=== PATIENT | female | born 1995 | race Two or more races ===

== ENCOUNTER 2022-04-29 20:40 | Emergency (ER) | payer OTHER, SELFPAY ==
--- NOTE | ~2022-04-29 | XR_ITS ---
EXAMINATION: XR RIBS, LEFT CLINICAL INFORMATION: Pole pulled into table with rib and abdominal pain COMPARISON: Chest radiograph 02/20/2012 TECHNIQUE: Single view of the chest. 3 views of the left ribs were obtained. FINDINGS: Lungs are clear. No consolidation, pneumothorax, or pleural effusion. The cardiomediastinal silhouette and pulmonary vasculature are normal. Osseous structures are unremarkable. Ribs are intact. No fractures are identified. XR/XR ribs LT min 3V w CXR1V IMPRESSION: Unremarkable examination.
[2022-04-29 20:50] VITALS: BP 142/86; PULSE 99; RESP 17; TEMP 37; O2SAT 97; BMI 32.8
[2022-04-29 21:02] LABS: MANUAL DIFF FLAG NO
[2022-04-29 21:03] LABS: Basophils Absolute Auto 0.1 X10*3/uL (0.0-0.2); Basophils Percent Auto 0.6 % (0-2); Eosinophils Absolute Auto 0.2 X10*3/uL (0.0-0.4); Eosinophils Percent Auto 1.7 % (0-4); Hematocrit 40.4 % (37.0-47.0); Hemoglobin 13.2 g/dl (12.0-16.0); Imm Gran Abs Auto 0.02 X10*3/uL (0.00-0.03); Imm Gran Pct Auto 0.2 % (0.0-0.4); Lymphocytes Percent Auto 33.9 % (20-40); Mean Corpuscular HGB Conc 32.7 g/dl (31.0-35.0); Mean Corpuscular Hemoglobin 28.4 pg (27.0-33.0); Mean Corpuscular Volume 87.1 fL (80.0-98.0); Mean Platelet Volume 9.3 fL (9.4-12.3); Monocytes Absolute Auto 0.7 X10*3/uL (0.1-1.2); Monocytes Percent Auto 7.8 % (2-11); Neutrophils Absolute Auto 4.9 x10*3/uL (2.0-8.3); Neutrophils Percent Auto 55.8 % (45-73); Platelet Count 302 X10*3/uL (160-400); Red Blood Count 4.64 X10*6/uL (4.20-5.50); Red Cell Distribution Width 12.7 % (11.0-16.0); White Blood Count 8.9 X10*3/uL (4.8-10.8)
[2022-04-29 21:24] LABS: Alanine Aminotransferase 21 U/L (0-31); Albumin Level 3.8 g/dL (3.5-5.0); Alkaline Phosphatase 114 U/L (39-117); Anion Gap 12 (12-20); Aspartate Amino Transferase 16 U/L (5-31); Bilirubin Total 0.2 mg/dL (0.0-1.0); Blood Urea Nitrogen 13 mg/dL (9-16); Carbon Dioxide 25 mmol/L (22-29); Chloride 104 mmol/L (96-108); Creatinine Clr Calc Pharmacy 110.2; Estimated Glomerular Filt Rate > 60; Glucose Random 329 mg/dL (60-115); Potassium 3.9 mmol/L (3.3-5.1); Sodium 137 mmol/L (135-145); Total Protein 6.7 g/dL (6.5-8.0)
--- NOTE | 2022-04-29 21:39 | ED_ITS ---
HPI - General Adult General Chief complaint: General Medical Stated complaint: Fall yesterday/Rib pain Source: patient Mode of arrival: ambulatory Limitations: no limitations History of Present Illness HPI narrative: 26-year-old female presents with left-sided rib and abdominal pain. States her dog pulled her over a table, she hit her left rib cage into the table. She stated it was painful last night but the pain is getting worse and radiating into her abdomen. She did note some bruising to the left chest wall. She has pain on inspiration, and pain on movement. States difficult to push to go to the bathroom because of the rib pain. She does not report any prodromal events prior to the injury, denies fevers, chills, cough, shortness breath. Onset (ago): day(s) (1) Location: chest Radiation: abdomen Severity: moderate Severity scale (1-10): 7 Quality: aching and constant Pain Consistency: constant Relieving factors: rest Exacerbating factors: movement Associated symptoms: chest pain Treatments prior to arrival: none Related Data Previous Rx's Medication Instructions Recorded oxycodone 5 mg tablet 5 mg PO Q8H PRN pain 3 days #6 tabs 04/29/22 Allergies Allergy/AdvReac Type Severity Reaction Status Date / Time ibuprofen [From MOTRIN] Allergy Unknown UNKNOWN Unverified 07/13/20 17:20 morphine [MORPHINE] Allergy Unknown REDNESS Unverified 07/13/20 17:20 naproxen [NAPROXEN] Allergy Unknown UNKNOWN Unverified 07/13/20 17:20 Motrin Allergy Unknown Uncoded 04/01/17 00:00 NSAIDS Allergy Unknown Uncoded 04/01/17 00:00 Review of Systems Review of Systems: Constitutional: No Fever, No Chills ENT/Mouth: No Ear Pain, No Hoarseness, No sore throat Eyes: No Eye Pain, No Swelling, No Redness, No Foreign Body Cardiovascular: No Chest Pain, No SOB Respiratory: No Cough, No Dyspnea Gastrointestinal: No Nausea, No Vomiting, No Diarrhea, No abdominal Pain Genitourinary: No Dysuria, No Hematuria Musculoskeletal: positive left rib and abdominal pain, No Myalgias, No Joint Swelling Skin: No Skin lacerations, No rash Neuro: No Weakness, No Numbness, No Paresthesias, No Loss of Consciousness, No Dizziness, No Headache Psych: No Anxiety/Panic, No Depression Heme/Lymph: no easy bruising, no Lymphadenopathy Endocrine: No Polyuria, No Polydipsia Yes all other systems are reviewed and are negative [facility] Past Medical History Attestation statement: The following information was validated with the patient. Source: old records reviewed Social History Social History Advance Directives: No Advance Directives Information Provided: No Physical Exam ED Vital Signs: Vital Signs - 24 hr 04/29/22 20:50 04/29/22 22:01 Temperature 98.6 F 98.6 F Pulse Rate 99 91 Respiratory Rate 17 16 Blood Pressure 142/86 H 136/84 Pulse Oximetry 97 96 Oxygen Delivery Method Room Air Room Air BMI result Body Mass Index 32.8 Appearance: Alert. Oriented X3. No acute distress. Eyes: Pupils equal, round and reactive to light. ENT: Pharynx normal. Neck: Normal inspection. Neck supple. No vertebral tenderness or step-offs. CVS: Normal heart rate and rhythm. Pulses normal. Respiratory: No respiratory distress. Lung sounds clear to auscultation all lo bes. Reproducible Chest wall tenderness to palpation. Abdomen: Soft and nontender. Skin: Bruising noted to the lateral left chest wall, Skin warm and dry. Normal skin color. Normal skin turgor. Extremities: No lower extremity edema. Gait well-balanced will coordinated. Neuro: No motor deficit. No sensory deficit. Cranial nerves 2-12 intact. Course Course Course Narrative: 26-year-old female presents with left rib and abdominal pain after an injury yesterday. Her dog pulled her over a table, she hit the left side of her chest wall on the edge of the table. She is ambulatory, appears nontoxic, speaking in full sentences, and states the pain is worse on movement and palpation. Vital signs are stable and within normal limits. Lab values indicate an elevated blood sugar of 329 however she does take metformin and is not insulin dependent. She has not exhibiting any signs or symptoms of hyperglycemia Chest x-ray is pending. 22:41 chest x-rays negative for acute findings. Patient's presentation with rib contusion. Will prescribe oxycodone and pain management. Patient does understand the risks of this medication. Patient verbalized understanding of and agrees to plan of care discharge home. Verbalized understanding of signs and symptoms indicating need for emergent intervention. Medical Decision Making Differential Diagnosis Differential Diagnosis: Pneumothorax, rib fracture, rib contusion, costochondritis Medical Records Medical records reviewed: Yes I reviewed the patient's medical records. Lab Data Lab results reviewed: Yes I reviewed the patient's lab results. Result diagrams: 04/29/22 20:58 04/29/22 20:58 Labs: Lab Results 04/29/22 04/29/22 Range/Units 20:58 20:58 WBC 8.9 (4.8-10.8) X10*3/uL RBC 4.64 (4.20-5.50) X10*6/uL Hgb 13.2 (12.0-16.0) g/dl Hct 40.4 (37.0-47.0) % MCV 87.1 (80.0-98.0) fL MCH 28.4 (27.0-33.0) pg MCHC 32.7 (31.0-35.0) g/dl RDW 12.7 (11.0-16.0) % Plt Count 302 (160-400) X10*3/uL MPV 9.3 L (9.4-12.3) fL Immature Gran % (Auto) 0.2 (0.0-0.4) % Neut % (Auto) 55.8 (45-73) % Lymph % (Auto) 33.9 (20-40) % Bremer % (Auto) 7.8 (2-11) % Eos % (Auto) 1.7 (0-4) % Baso % (Auto) 0.6 (0-2) % Lymph # (Auto) 3.0 (1.2-4.9) X10*3/uL Bremer # (Auto) 0.7 (0.1-1.2) X10*3/uL Eos # (Auto) 0.2 (0.0-0.4) X10*3/uL Baso # (Auto) 0.1 (0.0-0.2) X10*3/uL Abs Immat Gran (auto) 0.02 (0.00-0.03) X10*3/uL Absolute Neuts (auto) 4.9 (2.0-8.3) x10*3/uL Absolute Nucleated RBC 0.000 (0.0-0.012) X10*3/uL Nucleated RBC % (auto) 0.0 (0.0-0.2) /100WBC Sodium 137 (135-145) mmol/L Potassium 3.9 (3.3-5.1) mmol/L Chloride 104 (96-108) mmol/L Carbon Dioxide 25 (22-29) mmol/L Anion Gap 12 (12-20) BUN 13 (9-16) mg/dL Creatinine 0.90 (0.5-1.4) mg/dL Estim Creat Clear Calc 110.2 Estimated GFR > 60 Random Glucose 329 H (60-115) mg/dL Calcium 9.0 (8.4-10.2) mg/dL Total Bilirubin 0.2 (0.0-1.0) mg/dL AST 16 (5-31) U/L ALT 21 (0-31) U/L Alkaline Phosphatase 114 (39-117) U/L Total Protein 6.7 (6.5-8.0) g/dL Albumin 3.8 (3.5-5.0) g/dL Imaging Data Rib x-ray: Attestation: I personally reviewed and interpreted this imaging study as follows: Radiologist's impression: EXAMINATION: XR RIBS, LEFT CLINICAL INFORMATION: Pole pulled into table with rib and abdominal pain COMPARISON: Chest radiograph 02/20/2012 TECHNIQUE: Single view of the chest. 3 views of the left ribs were obtained. FINDINGS: Lungs are clear. No consolidation, pneumothorax, or pleural effusion. The cardiomediastinal silhouette and pulmonary vasculature are normal. Osseous structures are unremarkable. Ribs are intact. No fractures are identified. XR/XR ribs LT min 3V w CXR1V IMPRESSION: Unremarkable examination. Discharge Plan Discharge Clinical Impression: Contusion of rib Patient Disposition: Home, Self-Care Instructions: Contusion in Adults (ED), Rib Contusion (ED) Additional Instructions: You were evaluated for left rib injury. Negative for fracture. Your symptoms are consistent with rib contusion. Please take Tylenol 650 mg every 6 hours and Motrin 600 mg every 6 hours as needed for pain management. Write down what time he take these medications to prevent accidental overdose. Drink plenty of fluids. I prescribed oxycodone for pain management. This medication is a narcotic and has high risk for addiction and abuse. Do not drive or operate machinery while taking this medication. This medication can delay reaction time, increased risk for falls, cause drowsiness, and constipation. Use MiraLax once or twice daily to help soften stools. Follow-up with primary care physician. Thank you for choosing this emergency department for evaluation. Please follow-up with primary care physician as needed. Return to the emergency department for any new, concerning, or worsening symptoms. Prescriptions: New oxycodone 5 mg tablet 5 mg PO Q8H PRN (Reason: pain) 3 Days Qty: 6 0RF Rx Instructions: Partial Fill upon patient request. Rib contusion
[2022-04-29 22:01] VITALS: BP 136/84; PULSE 91; RESP 16; TEMP 37; O2SAT 96
== END 2022-04-29 23:24 | disposition home or self-care (01) ==
PROVIDERS: Emergency Provider Internal Medicine; PCP Pediatrics
DX: S20.212A Contusion of left front wall of thorax, initial encounter (principal); W01.190A Fall on same level from slipping, tripping and stumbling with subsequent striking against furniture, initial encounter; Y93.K1 Activity, walking an animal; Y92.038 Other place in apartment as the place of occurrence of the external cause; Y99.9 Unspecified external cause status
CPT/HCPCS: 36415; 71101; 80053; 85025; 99283; 99284

== ENCOUNTER 2023-01-29 14:56 | Emergency (ER) | payer OTHER, SELFPAY ==
--- NOTE | ~2023-01-29 | XR_ITS ---
EXAMINATION: XR LUMBOSACRAL SPINE CLINICAL INFORMATION: Low back pain. COMPARISON: None available. TECHNIQUE: Three views of the lumbosacral spine. FINDINGS: The vertebral bodies and posterior elements are normal. The disc spaces are preserved and the vertebral alignment is normal. The paraspinal soft tissues are normal. XR/XR lumbar spine 2-3V IMPRESSION: Unremarkable lumbar spine.
--- NOTE | ~2023-01-29 | XR_ITS ---
EXAMINATION: XR HIP, LEFT CLINICAL INFORMATION: Left hip pain. COMPARISON: None available. TECHNIQUE: Two views of the left hip. FINDINGS: Bones and soft tissues are normal. No fracture. Alignment is anatomic. Hip joint space is maintained. XR/XR hip LT w PEL1V IMPRESSION: Unremarkable left hip.
[2023-01-29 15:47] VITALS: BP 131/79; PULSE 135; RESP 20; TEMP 37.1; O2SAT 97; BMI 32.7
--- NOTE | 2023-01-29 15:48 | ED.LOWEXIN ---
HPI - Extremity Injury (Lower) General Chief Complaint: Back Pain/Injury <ISAAC Dumont Last Filed: 01/29/23 15:52> Stated Complaint: L hip pain <ISAAC Dumont Last Filed: 01/29/23 15:52> Time Seen by Provider: 01/29/23 16:21 <ISAAC Dumont Last Filed: 01/29/23 15:52> Source: patient <ISAAC Salter Last Filed: 01/29/23 17:33> Mode of arrival: ambulatory <ISAAC Salter Last Filed: 01/29/23 17:33> Limitations: no limitations <ISAAC Salter Last Filed: 01/29/23 17:33> History of Present Illness HPI Narrative: Patient is a 27 year old assigned female at with a history of sciatic nerve pain presenting to the emergency department today with left sided back pain radiating down her leg. Patient states that her pain began 2 weeks ago and she was seen by her PCP who prescribed prednisone, naproxen, and motrin. Patient denies any dizziness, lightheadedness, abdominal pain, nausea, vomiting, fever, chills, blurry vision, double vision, loss of vision, chest pain, difficulty breathing, shortness of breath, night sweats, pain with urination, increased urinary frequency, increased urinary urgency, blood in her urine or stool, syncope or a near syncopal episode, recent trauma or falls, bowel incontinence, bladder incontinence, bowel retention, bladder retention, or any other complaints at this time. <ISAAC Salter Last Filed: 01/29/23 17:33> Related Data Home Medications: Previous Rx's Medication Instructions Recorded oxycodone 5 mg tablet 5 mg PO Q8H PRN pain 3 days #6 tabs 04/29/22 <ISAAC Dumont Last Filed: 01/29/23 15:52> Allergies/Adverse Reactions: Allergies Allergy/AdvReac Type Severity Reaction Status Date / Time ibuprofen [From MOTRIN] Allergy Unknown UNKNOWN Unverified 07/13/20 17:20 morphine [MORPHINE] Allergy Unknown REDNESS Unverified 07/13/20 17:20 naproxen [NAPROXEN] Allergy Unknown UNKNOWN Unverified 07/13/20 17:20 Motrin Allergy Unknown Uncoded 04/01/17 00:00 NSAIDS Allergy Unknown Uncoded 04/01/17 00:00 <ISAAC Dumont Last Filed: 01/29/23 15:52> Review of Systems Constitutional: Constitutional: Reports no additional constitutional complaints, Denies chills, Denies fever(s) and Denies night sweats <ISAAC Salter Last Filed: 01/29/23 17:33> Eyes: Eyes: Reports no additional eye complaints, Denies blurry vision, Denies change in vision, Denies diplopia, Denies eye discharge, Denies loss of vision and Denies eye pain <ISAAC Salter Last Filed: 01/29/23 17:33> ENT: Denies dizziness <ISAAC Salter Last Filed: 01/29/23 17:33> Cardiovascular: Cardiovascular: Reports no additional cardiovascular complaints, Denies chest pain, Denies lightheadedness, Denies Loss of Consciousness and Denies dyspnea <ISAAC Salter Last Filed: 01/29/23 17:33> Respiratory: Respiratory: Reports no additional respiratory complaints and Denies dyspnea <SIAAC Salter Last Filed: 01/29/23 17:33> Gastrointestinal: Gastrointestinal: Reports no additional gastrointestinal complaints, Denies abdominal pain, Denies melena, Denies hematochezia, Denies change in bowel habits and Denies change in stool character <ISAAC Salter Last Filed: 01/29/23 17:33> Genitourinary: Genitourinary: Denies hematuria, Denies urinary frequency, Denies dysuria, Denies urinary incontinence, Denies urinary hesitancy and Denies urinary urgency <ISAAC Salter Last Filed: 01/29/23 17:33> Musculoskeletal: Musculoskeletal: Reports no additional musculoskeletal complaints, Reports back pain, Denies numbness and Denies tingling <ISAAC Salter Last Filed: 01/29/23 17:33> Neurologic: Denies dizziness, Denies loss of vision, Denies numbness and Denies tingling <ISAAC Salter Last Filed: 01/29/23 17:33> Psychiatric: Psychiatric: Reports no additional psychiatric complaints <ISAAC Salter - Last Filed: 01/29/23 17:33> Endocrine: Endocrine: Reports no additional endocrine complaints <ISAAC Salter - Last Filed: 01/29/23 17:33> Hematologic/Lymphatic: Hematologic/Lymphatic: Reports no additional hematologic/lymphatic complaints <ISAAC Salter - Last Filed: 01/29/23 17:33> Allergic/Immunologic: Allergic/Immunologic: Reports no additional allergic/immunologic complaints <ISAAC Salter - Last Filed: 01/29/23 17:33> [facility] Past Medical History Attestation statement: The following information was validated with the patient. <ISAAC Salter - Last Filed: 01/29/23 17:33> Source: old records reviewed and nursing notes reviewed <ISAAC Salter - Last Filed: 01/29/23 17:33> Social History Social History: Social History Alcohol intake: never Patient Tobacco Use Status: Never used Tobacco Advance Directives: No Advance Directives Information Provided: No <ISAAC Dumont - Last Filed: 01/29/23 15:52> Physical Exam Vital Signs: Vital Signs: Last Vital Signs Temp 98.2 F 01/29/23 17:00 Pulse 100 01/29/23 17:00 Resp 16 01/29/23 17:00 BP 125/73 01/29/23 17:00 Pulse Ox 97 01/29/23 17:00 O2 Del Method Room Air 01/29/23 17:00 BMI result Body Mass Index 32.7 <ISAAC Dumont - Last Filed: 01/29/23 15:52> Vital Signs: Last Vital Signs Temp 98.2 F 01/29/23 17:00 Pulse 100 01/29/23 17:00 Resp 16 01/29/23 17:00 BP 125/73 01/29/23 17:00 Pulse Ox 97 01/29/23 17:00 O2 Del Method Room Air 01/29/23 17:00 BMI result Body Mass Index 32.7 <ISAAC Salter - Last Filed: 01/29/23 17:33> Const: General: cooperative, no acute distress, alert and awake <ISAAC Salter - Last Filed: 01/29/23 17:33> Nutritional Appearance: well nourished <Deyanira Nation LA - Last Filed: 01/29/23 17:33> Orientation/consciousness: patient oriented x3 <Deyanira Nation LA - Last Filed: 01/29/23 17:33> Limitations: no limitations <Deyanira Nation LA - Last Filed: 01/29/23 17:33> HEENT: Head: Yes normal to inspection and Yes atraumatic <Deyanira Nation LA - Last Filed: 01/29/23 17:33> Ears: hearing grossly normal bilaterally and external ears normal <Deyanira Nation LA - Last Filed: 01/29/23 17:33> General nose exam: Normal external nose present, no nasal discharge noted and no epistaxis <Deyanira Nation LA - Last Filed: 01/29/23 17:33> Face and sinus: Yes normal facial exam, No abrasion and No laceration <Deyanira Nation LA - Last Filed: 01/29/23 17:33> Mouth: Normal oral and palatal mucosa present, no drooling and no muffled voice <Deyanira Nation LA - Last Filed: 01/29/23 17:33> Eyes: General: appearance normal, both eyes and all related structures <ISAAC Salter - Last Filed: 01/29/23 17:33> Periorbital: periorbital findings normal <ISAAC Salter - Last Filed: 01/29/23 17:33> Eyelids: Yes eyelids normal <Deyanira Nation LA - Last Filed: 01/29/23 17:33> Conjunctivae: conjunctivae normal <Deyanira Nation LA - Last Filed: 01/29/23 17:33> Pupils: Equal, round and reactive pupils present <ISAAC Salter - Last Filed: 01/29/23 17:33> EOM: EOMs intact bilaterally <ISAAC Salter - Last Filed: 01/29/23 17:33> Neck: Neck: Yes normal visual inspection, Yes full ROM and Yes no lymphadenopathy <ISAAC Salter - Last Filed: 01/29/23 17:33> Chest: Chest palpation & inspection: normal inspection of the chest <Deyanira NationISAAC - Last Filed: 01/29/23 17:33> Resp: Effort & Inspection: normal respiratory effort and able to speak in complete sentences <Deyanira VivasISAAC mendenhall - Last Filed: 01/29/23 17:33> GI: Inspection: Yes normal to inspection <Deyanira Nation LA - Last Filed: 01/29/23 17:33> : General: Yes no CVA tenderness <Deyanira Vivasza LA - Last Filed: 01/29/23 17:33> Back/Spine/Pelvis: Back: no CVA tenderness <Deyanira Nation LA - Last Filed: 01/29/23 17:33> Cervical Spine: normal cervical lordosis and cervical ROM normal <Deyanira VivasISAAC mendenhall - Last Filed: 01/29/23 17:33> Thoracic/Lumbar Spine: thoracic and lumbar spine normal to inspection and thoraco-lumbar ROM normal <Deyanira VivasISAAC mendenhall - Last Filed: 01/29/23 17:33> Neuro: General: patient oriented x3 and moves all extremities <Deyanira Nation LA - Last Filed: 01/29/23 17:33> Cranial nerves: Yes Equal, round and reactive pupils present <Deyanira VivasISAAC mendenhall - Last Filed: 01/29/23 17:33> Cognition (Neuro): normal cognition <Deyanira NationISAAC - Last Filed: 01/29/23 17:33> Motor exam (neuro): 5/5 motor strength present throughout <Deyanira VivasISAAC mendenhall - Last Filed: 01/29/23 17:33> Sensory Exam: Normal double simultaneous stimulation for sensation <Deyanira Vviasza LA - Last Filed: 01/29/23 17:33> Coordination: [id number] test normal <Deyanira VivasISAAC mendenhall - Last Filed: 01/29/23 17:33> Extrem: General: Yes normal to inspection, Yes full ROM and Yes capillary refill normal <Deyanira VivasISAAC mendenhall - Last Filed: 01/29/23 17:33> Psych: Appearance: grossly normal <Deyanirarachel VivasISAAC mendenhall - Last Filed: 01/29/23 17:33> Mental Status: mental status grossly normal <Deyanirarachel VivasISAAC mendenhall - Last Filed: 01/29/23 17:33> Affect: normal affect <ISAAC Salter Last Filed: 01/29/23 17:33> Attitude: cooperative <ISAAC Salter Last Filed: 01/29/23 17:33> Thought process: Normal thought process present <ISAAC Salter Last Filed: 01/29/23 17:33> Thought content: Normal thought content present <ISAAC Salter Last Filed: 01/29/23 17:33> Insight: Good insight present (Psych) <ISAAC Salter Last Filed: 01/29/23 17:33> Course Course Course Narrative: RME - 27 yo female with history of sciatica here with severe left sided sciatica for the last 2 weeks, acutely worse 4 days ago. No fall or trauma. Saw PCP on Friday and was prescribed flexeril, prednisone, and motrin 800 with minimal relief. Called PCP today and was told to come to the ER for treatment and imaging. Unable to ambulate. Reports 8/10 pain and appears very uncomfortable. Plan: IM dilaudid and toradol. XRs when more comfortable. <ISAAC Dumont Last Filed: 01/29/23 15:52> Medications Administered Discontinued Medications Generic Name Dose Route Start Last Admin Trade Name Freq PRN Reason Stop Dose Admin Hydromorphone HCl 1 mg 01/29/23 15:49 01/29/23 16:42 Hydromorphone Hcl 1 Mg/Ml Syringe IM 01/29/23 15:50 1 mg ONCE ONE Administration Protocol Ketorolac Tromethamine 30 mg 01/29/23 15:49 01/29/23 16:41 Ketorolac Tromethamine 30 Mg/Ml Vial IM 01/29/23 15:50 30 mg ONCE ONE Administration <ISAAC Dumont Last Filed: 01/29/23 15:52> Medications Administered Discontinued Medications Generic Name Dose Route Start Last Admin Trade Name Freq PRN Reason Stop Dose Admin Hydromorphone HCl 1 mg 01/29/23 15:49 01/29/23 16:42 Hydromorphone Hcl 1 Mg/Ml Syringe IM 01/29/23 15:50 1 mg ONCE ONE Administration Protocol Ketorolac Tromethamine 30 mg 01/29/23 15:49 01/29/23 16:41 Ketorolac Tromethamine 30 Mg/Ml Vial IM 01/29/23 15:50 30 mg ONCE ONE Administration <ISAAC Salter - Last Filed: 01/29/23 17:33> Medical Decision Making Medical Decision Making MDM Narrative: Patient is a 27 year old assigned female at with a history of sciatic nerve pain presenting to the emergency department today with low back pain. Patient's physical exam was unremarkable. Patient's lumbar spine and hip and pelvis x-rays showed no acute process. I explained my physical exam findings as well as all test results to the patient. I answered all questions asked by the patient. Patient received pain medication while in the department which she stated helped her symptoms significantly. I stressed the importance of the patient taking her medication as prescribed. 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 I stressed the importance of the patient returning to the emergency department immediately if her symptoms were to worsen or if she were to develop any dizziness, shortness of breath, difficulty breathing, chest pain, blurry vision, loss of vision, nausea, vomiting, abdominal pain, fever, chills, back pain, or any other complaints. Patient verbalized agreement and understanding with this treatment plan and discharge. <ISAAC Salter - Last Filed: 01/29/23 17:33> Differential Diagnosis Differential Diagnoses: The differential diagnosis associated with the presentation includes <ISAAC Salter Last Filed: 01/29/23 17:33> sciatic back pain <ISAAC Salter Last Filed: 01/29/23 17:33> Independent Interpretation I performed an independent interpretation of an: Plain X-Ray <ISAAC Salter - Last Filed: 01/29/23 17:33> Interpretation: My interpretation is in agreement with the radiologist's impression of these imaging studies. EXAMINATION: XR LUMBOSACRAL SPINE CLINICAL INFORMATION: Low back pain. COMPARISON: None available. TECHNIQUE: Three views of the lumbosacral spine. FINDINGS: The vertebral bodies and posterior elements are normal. The disc spaces are preserved and the vertebral alignment is normal. The paraspinal soft tissues are normal. XR/XR lumbar spine 2-3V IMPRESSION: Unremarkable lumbar spine. Dictated By: Sky Cheatham MD Signed By: Electronically signed by Sky Cheatham MD 01/29/23 1644 EXAMINATION: XR HIP, LEFT CLINICAL INFORMATION: Left hip pain. COMPARISON: None available. TECHNIQUE: Two views of the left hip. FINDINGS: Bones and soft tissues are normal. No fracture. Alignment is anatomic. Hip joint space is maintained. XR/XR hip LT w PEL1V IMPRESSION: Unremarkable left hip. ? Dictated By: Sky Cheatham MD Signed By: Electronically signed by Sky Cheatham MD 01/29/23 [id number] <ISAAC Salter - Last Filed: 01/29/23 17:33> Discharge Plan Discharge Clinical Impression: Sciatica <ISAAC Dumont Last Filed: 01/29/23 15:52> Patient Disposition: Home, Self-Care <ISAAC Dumont Last Filed: 01/29/23 15:52> Instructions: Sciatica (ED) <ISAAC Dumont - Last Filed: 01/29/23 15:52> Additional Instructions: Continue taking your medication as previously perscribed. 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 Return to the emergency department immediately if your symptoms worsen or if you develop any dizziness, shortness of breath, difficulty breathing, chest pain, blurry vision, loss of vision, nausea, vomiting, abdominal pain, fever, chills, back pain, or any other complaints. <ISAAC Dumont - Last Filed: 01/29/23 15:52> Prescriptions: No Action oxycodone 5 mg tablet 5 mg PO Q8H PRN (Reason: pain) 3 Days Qty: 6 0RF Rx Instructions: Partial Fill upon patient request. Rib contusion <ISAAC Dumont - Last Filed: 01/29/23 15:52> Referrals: [facility] [place] Family Medicine [Provider Group] (Call to establish and follow up with a primary care provider. If you already have a primary care provider, please follow up with them.) [facility] [place] Primary Care, [facility] [Provider Group] (Call to establish and follow up with a primary care provider. If you already have a primary care provider, please follow up with them.) [facility] [place] Primary Care,[place] [Provider Group] (Call to establish and follow up with a primary care provider. If you already have a primary care provider, please follow up with them.) [facility] [Provider Group] (Call to establish and follow up with a carburetor specialist. ) <ISAAC Dumont - Last Filed: 01/29/23 15:52> Stand Alone Forms: Work/School Release <ISAAC Dumont - Last Filed: 01/29/23 15:52> Print Language: Occitan <ISAAC Dumont - Last Filed: 01/29/23 15:52>
[2023-01-29] MEDS: Ketorolac Tromethamine 30 MG/ML VIAL IM (16:41)
[2023-01-29] MEDS: HYDROmorphone HCl 1 MG/ML SYRINGE IM (16:42)
[2023-01-29 17:00] VITALS: BP 125/73; PULSE 100; RESP 16; TEMP 36.8; O2SAT 97
== END 2023-01-29 17:33 | disposition home or self-care (01) ==
PROVIDERS: Emergency Provider Emergency Medicine; PCP Pediatrics
DX: M54.42 Lumbago with sciatica, left side (principal)
CPT/HCPCS: 72100; 73502; 96372; 99284; J1170; J1885

== ENCOUNTER 2023-07-20 10:58 | Emergency (ER) | payer OTHER, SELFPAY ==
[2023-07-20 11:16] VITALS: BP 125/78; PULSE 94; RESP 18; TEMP 37.3; O2SAT 97; BMI 32.1
--- NOTE | 2023-07-20 11:18 | ED_ITS ---
HPI - General Adult General Chief complaint: Back Pain/Injury Stated complaint: l leg pain Time Seen by Provider: 07/20/23 12:26 Source: patient Mode of arrival: wheelchair Limitations: no limitations History of Present Illness HPI narrative: 27 yo female with history of sciatica, NIDDM, HTN here with complaints of acute on chronic left sided back pain with radiation down the left leg since last evening. patient denies any injury or trauma. Patient reports she is waiting for an appointment to see [facility]. She reports the pain feels like a cramping pain. No associated weakness, numbness, tingling of the extremity. No numbness in the groin. No bowel or bladder incontinence. No fevers or chills. Patient took Motrin, Tylenol and a muscle relaxant unknown name last night with continued symptoms. Related Data Previous Rx's Medication Instructions Recorded oxycodone 5 mg tablet 5 mg PO Q8H PRN pain 3 days #6 tabs 04/29/22 cyclobenzaprine 10 mg tablet 10 mg PO TID PRN muscle spasm #15 07/20/23 tabs ibuprofen 800 mg tablet 800 mg PO Q8H PRN pain #30 tabs 07/20/23 lidocaine 5 % topical patch 1 patch topical DAILY #15 ea 07/20/23 (Lidoderm) oxycodone 5 mg tablet 5 mg PO Q8H PRN pain #10 tabs 07/20/23 prednisone 20 mg tablet 60 mg (3 x 20 mg) PO DAILY #15 tabs 07/20/23 Allergies Allergy/AdvReac Type Severity Reaction Status Date / Time ibuprofen [From MOTRIN] Allergy Unknown UNKNOWN Verified 07/20/23 11:16 morphine [MORPHINE] Allergy Unknown REDNESS Verified 07/20/23 11:16 naproxen [NAPROXEN] Allergy Unknown UNKNOWN Verified 07/20/23 11:16 NSAIDS Allergy Unknown Unknown Uncoded 07/20/23 11:16 Review of Systems Review of Systems: Yes all other systems are reviewed and are negative Constitutional: Constitutional: Reports no additional constitutional complaints, Denies body ache(s), Denies chills, Denies fever(s), Denies headache(s) and Denies weakness Eyes: Eyes: Reports no additional eye complaints and Denies change in vision ENT: Reports system reviewed and no additional complaints, except as documented, Denies dizziness, Denies headache(s), Denies nasal congestion, Denies nasal discharge and Denies neck pain Cardiovascular: Cardiovascular: Reports no additional cardiovascular complaints, Denies chest pain, Denies leg edema and Denies dyspnea Respiratory: Respiratory: Reports no additional respiratory complaints, Denies cough and Denies dyspnea Gastrointestinal: Gastrointestinal: Reports no additional gastrointestinal complaints, Denies abdominal pain, Denies diarrhea, Denies nausea and Denies vomiting Genitourinary: Genitourinary: Reports no additional female genitourinary complaints and Denies urinary incontinence Musculoskeletal: Musculoskeletal: Reports no additional musculoskeletal complaints, Reports back pain, Denies arthralgias, Denies joint swelling, Denies neck pain, Denies numbness, Reports radiating pain into limb and Denies tingling Integumentary/Breasts: Skin/Breast: Reports system reviewed and no additional complaints, except as docu and Denies rash Neurologic: Reports system reviewed and no additional complaints, except as documented, Denies dizziness, Denies headache(s), Denies numbness, Denies tingling and Denies weakness PMF Past Medical History Attestation statement: The following information was validated with the patient. Source: old records reviewed and nursing notes reviewed Social History Social History Alcohol intake: never Patient Tobacco Use Status: Never used Tobacco Advance Directives: No Advance Directives Information Provided: No Physical Exam ED Vital Signs: Vital Signs - 24 hr 07/20/23 11:16 07/20/23 14:12 Temperature 99.2 F 98.7 F Pulse Rate 94 75 Respiratory Rate 18 18 Blood Pressure 125/78 140/87 H Pulse Oximetry 97 99 Oxygen Delivery Method Room Air Room Air BMI result Body Mass Index 32.1 Const General: cooperative, healthy appearing, comfortable and no acute distress Orientation/consciousness: patient oriented x3 Limitations: no limitations HENMT Head: Yes normal to inspection Ears: hearing grossly normal bilaterally Eyes General: appearance normal, both eyes and all related structures Pupils: Equal, round and reactive pupils present Neck Neck: Yes normal visual inspection, Yes full ROM, Yes no lymphadenopathy and Yes no meningeal signs Chest Chest palpation & inspection: normal inspection of the chest Resp Effort & Inspection: normal respiratory effort Auscultation: clear to auscultation bilaterally Cardio Rate: regular rate Rhythm: regular rhythm Peripheral pulses: Peripheral pulses 2+ throughout GI Inspection: Yes normal to inspection Palpation (GI): Soft to palpation and nontender General: Yes no CVA tenderness Back/Spine/Pelvis Other: TTP to left lumbar soft tissue and left buttocks worsened with left straight leg raise Back: no CVA tenderness Thoracic/Lumbar Spine: thoracic and lumbar spine normal to inspection Neuro General: patient oriented x3, moves all extremities and no meningeal signs Cranial nerves: Yes CN's II-XII intact bilaterally, Yes Equal, round and reactive pupils present, Yes Bilaterally intact EOM present, Yes Nystagmus not present, Yes Normal facial strength present and Yes Midline tongue present Cognition (Neuro): normal cognition Motor exam (neuro): 5/5 motor strength present throughout Sensory Exam: Normal double simultaneous stimulation for sensation Deep tendon reflexes (DTR's): Right patellar reflex intensity grade: 2+ and Left patellar reflex intensity grade: 2+ Course Course Course Narrative: RME: 27 yold female presents to the ED for left sciatica pain since last night. patient states having this problem before. patient denies any trauma, abdominal pain, dysuria, hematurai, or any urinary/bowel incontinence. Reevaluation(s) Reevaluation #1: 1500-Patient able to get up out of and ambulate a short distance. She is comfortable going home and feels pain is better controlled. reviewed worrisome signs and symptoms of when to return to the emergency room. Comfortable plan for discharge home. Medications Administered Discontinued Medications Generic Name Dose Route Start Last Admin Trade Name Irving PRN Reason Stop Dose Admin Acetaminophen 975 mg 07/20/23 12:32 07/20/23 12:44 Acetaminophen 325 Mg Tablet PO 07/20/23 12:33 975 mg ONCE ONE Administration Diazepam 2 mg 07/20/23 12:32 07/20/23 12:44 Diazepam 2 Mg Tablet PO 07/20/23 12:33 2 mg ONCE ONE Administration Ketorolac Tromethamine 60 mg 07/20/23 12:32 07/20/23 12:44 Ketorolac Tromethamine 60 Mg/2 Ml Vial IM 07/20/23 12:33 60 mg ONCE ONE Administration Oxycodone HCl 10 mg 07/20/23 13:32 07/20/23 13:40 Oxycodone Hcl Immed Release 5 Mg Tablet PO 07/20/23 13:33 10 mg ONCE ONE Administration Medical Decision Making Medical Decision Making [facility] Narrative: 27 yo female with history of sciatica, NIDDM, HTN here with complaints of acute on chronic left sided back pain with radiation down the left leg since last evening. patient denies any injury or trauma. Patient reports she is waiting for an appointment to see [facility]. She reports the pain feels like a cramping pain. No associated weakness, numbness, tingling of the extremity. No numbness in the groin. No bowel or bladder incontinence. No fevers or chills. Patient took Motrin, Tylenol and a muscle relaxant unknown name last night with continued symptoms. TTP to left lumbar soft tissue and left buttocks worsened with left straight leg raise No overt neuro deficits or red flag symptoms Patient arrives in d/t pain Will provide analgesia and re-assess Differential Diagnosis Differential Diagnoses: The differential diagnosis associated with the presentation includes Lumbar radiculopathy, sciatica Low concern for malignancy, epidural abscess, cord compression, cauda equina with normal neurological exam with no red flag symptoms or neurological deficits. No reports of night sweats, weight loss, fevers. No history of IV drug abuse or immunocompromised state low concern for fracture, bony abnormality with no reports of injury or trauma low concern for AAA with gradual onset with no reports of abdominal pain or radiation to the abdomen low concern for renal colic, pyelonephritis with no urinary symptoms Admission/Observation Consideration of admission/observation: Escalation of care including admission/observation considered patient has no neurological deficits or red flag symptoms to suggest need for MRI pain is well controlled and patient is ambulatory so no need for admission for intractable pain Tests considered The following testing was considered but not selected: patient has no neurological deficits or red flag symptoms to suggest need for MRI Prescription Management I considered prescription management with: Pain Medication Discharge Plan Discharge Clinical Impression: Sciatica Patient Disposition: Home, Self-Care Instructions: Sciatica (ED) Additional Instructions: Heat or ice Gentle stretching No heavy lifting or bending Follow-up with your primary care doctor for any continued symptoms return for incontinence of urine or stool, numbness in the groin, fever Prescriptions: New cyclobenzaprine 10 mg tablet 10 mg PO TID PRN (Reason: muscle spasm) Qty: 15 0RF oxycodone 5 mg tablet 5 mg PO Q8H PRN (Reason: pain) Qty: 10 0RF Rx Instructions: Partial Fill upon patient request. prednisone 20 mg tablet 60 mg PO DAILY Qty: 15 0RF ibuprofen 800 mg tablet 800 mg PO Q8H PRN (Reason: pain) Qty: 30 0RF lidocaine [Lidoderm] 5 % adhesive patch,medicated 1 patch topical DAILY Qty: 15 0RF Rx Instructions: leave on most painful area for up to 12 hrs No Action oxycodone 5 mg tablet 5 mg PO Q8H PRN (Reason: pain) 3 Days Qty: 6 0RF Rx Instructions: Partial Fill upon patient request. Rib contusion Referrals: Maryjane De La Cruz DO [Primary Care Provider] - 1 week Stand Alone Forms: Work/School Release Interventions: ED Discharge Assessment Last Done: 07/20/23 15:12 Discharge Date/Time: 07/20/23 15:13
[2023-07-20] MEDS: Ketorolac Tromethamine 60 MG/2 ML VIAL IM (12:44)
[2023-07-20] MEDS: diazePAM 2 MG TABLET PO (12:44)
[2023-07-20] MEDS: Acetaminophen 325 MG TABLET 975 MG PO (12:44)
[2023-07-20] MEDS: oxyCODONE HCl Immed Release 5 MG TABLET 10 MG PO (13:40)
[2023-07-20 14:12] VITALS: BP 140/87; PULSE 75; RESP 18; TEMP 37.1; O2SAT 99
--- NOTE | 2023-07-20 15:12 | PC.NURSE ---
this nurse ambulated with pt in exam room, pt had been unable to tolerate weight bearing on left side- pt now oob w/cane, able to reposition self in bed w/o assistance. pt to be d/c'd home
== END 2023-07-20 15:13 | disposition home or self-care (01) ==
PROVIDERS: Emergency Provider Emergency Medicine; PCP Pediatrics
DX: M54.42 Lumbago with sciatica, left side (principal); Z79.899 Other long term (current) drug therapy
CPT/HCPCS: 96372; 99284; J1885

== ENCOUNTER 2024-03-04 14:22 | Emergency (ER) | payer OTHER, SELFPAY ==
--- NOTE | ~2024-03-04 | CT_ITS ---
EXAMINATION: CT HEAD WITHOUT CONTRAST CLINICAL INFORMATION: Dizziness COMPARISON: CT scan of brain on 11/01/2016 TECHNIQUE: Contiguous axial imaging was performed from the skull base to vertex without intravenous administration of contrast. This CT examination was performed using dose optimization techniques as appropriate, variously including the following: *Automated exposure control *Adjustment of mA and/or kV according to patient size (this includes techniques or standardized protocols for targeted exams where dose is matched to indication/reason for exam; i.e. extremities or head) *Use of iterative reconstruction technique DLP: 642 mGy-cm FINDINGS: Ventricles, sulci and cisterns are normal. There is no midline shift, no abnormal intra- or extra- axial fluid accumulation. Perkins and white matter differentiation is normal. Bone window images show no evidence of skull fracture. CT/CT head/brain wo IV con IMPRESSION: 1. Unchanged Normal CT scan of the brain. 2. No intracranial hemorrhage or skull fracture is seen. 3. No evidence of space occupying lesion could be found. 4. The current plain CT scan of the brain shows no diagnostic evidence of acute cerebral infarction.
[2024-03-04 14:42] VITALS: BMI 32.1
[2024-03-04 14:49] VITALS: BP 157/86; PULSE 94; RESP 16; TEMP 37; O2SAT 98; BMI 32.3
--- NOTE | 2024-03-04 14:49 | ECG_ITS ---
Test Reason : DIZZINESS Blood Pressure : / mmHG Vent. Rate : 095 BPM Atrial Rate : 095 BPM P-R Int : 150 ms QRS Dur : 080 ms QT Int : 346 ms P-R-T Axes : 025 034 004 degrees QTc Int : 434 ms Normal sinus rhythm Normal ECG When compared with ECG of 21-MAR-2011 22:27, No significant change was found Referred By: Govind Pena Electronically Signed By:Shmuel Batista
--- NOTE | 2024-03-04 14:50 | ED_ITS ---
HPI - General Adult General Chief complaint: Dizziness Stated complaint: Facial numbness, dizziness Time Seen by Provider: 03/04/24 18:25 Source: patient Mode of arrival: ambulatory Limitations: no limitations History of Present Illness HPI narrative: 28 year old female PMH: sciatica, NIDDM, HTN who presents emergency department for dizziness and facial numbness which has resolved. She has had this 5 times in the past several months. The patient was seen a front she appears to be a uncontrolled type 2 diabetic with A1c of 8 she is chronic back pain hypertension but denies this being she today she has a falls or injuries denies fevers chills cough or shortness of breath. Related Data Previous Rx's ?Medication ?Instructions ?Recorded oxycodone 5 mg tablet 5 mg PO Q8H PRN pain 3 days #6 tabs 04/29/22 cyclobenzaprine 10 mg tablet 10 mg PO TID PRN muscle spasm #15 07/20/23 tabs ibuprofen 800 mg tablet 800 mg PO Q8H PRN pain #30 tabs 07/20/23 lidocaine 5 % topical patch 1 patch topical DAILY #15 ea 07/20/23 (Lidoderm) oxycodone 5 mg tablet 5 mg PO Q8H PRN pain #10 tabs 07/20/23 prednisone 20 mg tablet 60 mg (3 x 20 mg) PO DAILY #15 tabs 07/20/23 meclizine 12.5 mg tablet 12.5 mg PO TID PRN dizziness #30 03/04/24 tabs Allergies Allergy/AdvReac Type Severity Reaction Status Date / Time ibuprofen [From MOTRIN] Allergy Unknown UNKNOWN Verified 03/04/24 14:47 morphine [MORPHINE] Allergy Unknown REDNESS Verified 07/20/23 11:16 naproxen [NAPROXEN] Allergy Unknown UNKNOWN Verified 07/20/23 11:16 NSAIDS Allergy Unknown Unknown Uncoded 07/20/23 11:16 Review of Systems 2 Review of Systems: Review of systems: General: Patient denies any fever chills recent illness or falls Musculoskeletal: Denies back pain or body aches or other injuries HEENT: denies headache, runny nose, ear pain Respiratory: denies shortness of breath, cough Cardiovascular: no chest pain or palpitations : denies dysuria, frequency Abdomen: no nausea vomiting denies abdominal pain Extremities: no swelling, no pain Skin: no diaphoresis Yes all other systems are reviewed and are negative [facility] Social History Social History Alcohol intake: never Patient Tobacco Use Status: Never used Tobacco Advance Directives: No Advance Directives Information Provided: No Do you have a plan to hurt others: No Plan Physical Exam ED Vital Signs: Vital Signs - 24 hr 03/04/24 14:49 03/04/24 19:07 Temperature 98.6 F 98.6 F Pulse Rate 94 97 Respiratory Rate 16 18 Blood Pressure 157/86 H 125/71 Pulse Oximetry 98 99 Oxygen Delivery Method Room Air Room Air BMI result Body Mass Index 32.3 Neurological exam: CN II- XII tested. Patient is alert and oriented to person place and time. Patient has no dysphagia or dysarthia, denies good vision in all four vision bee no nystagmus on exam, good strength to upper and lower extremities with normal reflexes to brachioradialis, wrist, patella and achilles. Negative romberg, good finger to nose and heel to adorno. General: Well-appearing well-nourished in no signs of distress HEENT: Normocephalic atraumatic Neck: No signs of JVD, no masses no tenderness or lymphadenopathy Cardiovascular: Regular rate and rhythm Respiratory: Clear to auscultation bilaterally Abdomen: Soft nontender no masses Extremities: Normal pedal pulses no signs of edema Skin: Dry warm no rashes Back: No tenderness full ROM Course Course Course Narrative: RME: 28 yold female presents to the ED for resolved epsideo of dizziness described as room spinning, facial numbness and tingling. Patient states this is the 5th episode in the past few months. Patient denies any slurred speech, loss of vision, paralysis of extremities. Patient states this occurred around 12:00pm. Patient is diabetic. POC glucose ordered. Negative for any neuro deficits. NIH score is 0. Patient has had similar episodes in the past. EKG labs ordered. Head CT scan ordered. Presently no indication for head CTA. Acute stroke unlikely. Physical exam does not show signs of large vessel occlusion. Reevaluation(s) Reevaluation #1: [id number] patient able to ambulate still has pins and needles I again did on our exam which completely unremarkable I do not have emergent reason for all these symptoms today do think the patient safe to go home. Medical Decision Making Medical Decision Making [facility] Narrative: Patient did undergo CT and labs which were all unremarkable Differential Diagnosis Differential Diagnoses: The differential diagnosis associated with the presentation includes BPPV dizziness stroke is less likely with her age and the fact the symptoms are intermittent come back 5 times electrolyte abnormality dehydration Lab Data 03/04/24 16:13 03/04/24 15:00 Labs: Lab Results 03/04/24 03/04/24 03/04/24 Range/Units 15:00 16:13 16:13 WBC 10.2 10.6 (4.8-10.8) X10*3/uL RBC 4.85 (4.20-5.50) X10*6/uL Hgb (12.0-16.0) g/dl Hct (37.0-47.0) % MCV (80.0-98.0) fL MCH (27.0-33.0) pg MCHC (31.0-35.0) g/dl RDW (11.0-16.0) % Plt Count (160-400) X10*3/uL MPV (9.4-12.3) fL Immature Gran % (Auto) (0.0-0.4) % Neut % (Auto) (45-73) % Lymph % (Auto) (20-40) % [place] % (Auto) (2-11) % Eos % (Auto) (0-4) % Baso % (Auto) (0-2) % Lymph # (Auto) (1.2-4.9) X10*3/uL [place] # (Auto) (0.1-1.2) X10*3/uL Eos # (Auto) (0.0-0.4) X10*3/uL Baso # (Auto) (0.0-0.2) X10*3/uL Abs Immat Gran (auto) (0.00-0.03) X10*3/uL Absolute Neuts (auto) (2.0-8.3) x10*3/uL Absolute Nucleated RBC (0.0-0.012) X10*3/uL Nucleated RBC % (auto) (0.0-0.2) /100WBC PT (11.1-13.3) SEC INR (0.9-1.1) APTT (26.0-36.8) SEC Sodium 137 (135-145) mmol/L Potassium 3.8 (3.3-5.1) mmol/L Chloride 105 (96-108) mmol/L Carbon Dioxide 21 L (22-29) mmol/L Anion Gap 15 (12-20) BUN 14 (9-16) mg/dL Creatinine 0.84 (0.5-1.4) mg/dL Estim Creat Clear Calc 115.0 Estimated GFR > 60 Random Glucose 242 H (60-115) mg/dL Calcium 9.3 (8.4-10.2) mg/dL Magnesium 1.8 (1.6-2.6) mg/dL Total Bilirubin 0.3 (0.0-1.0) mg/dL AST 17 (5-31) U/L ALT 28 (0-31) U/L Alkaline Phosphatase 100 (39-117) U/L Troponin I High Sens < 2.7 (<3.5-17.0) ng/L Total Protein 7.6 (6.5-8.0) g/dL Albumin 4.0 (3.5-5.0) g/dL Beta HCG, Quant < 2 mIU/mL Urine Color Urine Appearance Urine pH (5.0-9.0) Ur Specific [facility] (1.005-1.025) Urine Protein (Neg-Trace) mg/dL Urine Glucose (UA) (Negative) mg/dL Urine Ketones (Negative) mg/dL Urine Blood (Negative) Urine Nitrite (Negative) Ur Leukocyte Esterase (Negative) Urine RBC (0-2) /HPF Urine WBC (0-5) /HPF Ur Squamous Epith Cells (0-2) /HPF Urine Bacteria (None Seen) Hyaline Casts (0-2) /LPF 03/04/24 03/04/24 03/04/24 Range/Units 16:13 16:13 16:13 WBC (4.8-10.8) X10*3/uL RBC 4.89 (4.20-5.50) X10*6/uL Hgb 13.9 13.9 (12.0-16.0) g/dl Hct 41.9 42.3 (37.0-47.0) % MCV 86.4 (80.0-98.0) fL MCH (27.0-33.0) pg MCHC (31.0-35.0) g/dl RDW (11.0-16.0) % Plt Count (160-400) X10*3/uL MPV (9.4-12.3) fL Immature Gran % (Auto) (0.0-0.4) % Neut % (Auto) (45-73) % Lymph % (Auto) (20-40) % [place] % (Auto) (2-11) % Eos % (Auto) (0-4) % Baso % (Auto) (0-2) % Lymph # (Auto) (1.2-4.9) X10*3/uL [place] # (Auto) (0.1-1.2) X10*3/uL Eos # (Auto) (0.0-0.4) X10*3/uL Baso # (Auto) (0.0-0.2) X10*3/uL Abs Immat Gran (auto) (0.00-0.03) X10*3/uL Absolute Neuts (auto) (2.0-8.3) x10*3/uL Absolute Nucleated RBC (0.0-0.012) X10*3/uL Nucleated RBC % (auto) (0.0-0.2) /100WBC PT (11.1-13.3) SEC INR (0.9-1.1) APTT (26.0-36.8) SEC Sodium (135-145) mmol/L Potassium (3.3-5.1) mmol/L Chloride (96-108) mmol/L Carbon Dioxide (22-29) mmol/L Anion Gap (12-20) BUN (9-16) mg/dL Creatinine (0.5-1.4) mg/dL Estim Creat Clear Calc Estimated GFR Random Glucose (60-115) mg/dL Calcium (8.4-10.2) mg/dL Magnesium (1.6-2.6) mg/dL Total Bilirubin (0.0-1.0) mg/dL AST (5-31) U/L ALT (0-31) U/L Alkaline Phosphatase (39-117) U/L Troponin I High Sens (<3.5-17.0) ng/L Total Protein (6.5-8.0) g/dL Albumin (3.5-5.0) g/dL Beta HCG, Quant mIU/mL Urine Color Urine Appearance Urine pH (5.0-9.0) Ur Specific [facility] (1.005-1.025) Urine Protein (Neg-Trace) mg/dL Urine Glucose (UA) (Negative) mg/dL Urine Ketones (Negative) mg/dL Urine Blood (Negative) Urine Nitrite (Negative) Ur Leukocyte Esterase (Negative) Urine RBC (0-2) /HPF Urine WBC (0-5) /HPF Ur Squamous Epith Cells (0-2) /HPF Urine Bacteria (None Seen) Hyaline Casts (0-2) /LPF 03/04/24 03/04/24 03/04/24 Range/Units 16:13 16:13 16:13 WBC (4.8-10.8) X10*3/uL RBC (4.20-5.50) X10*6/uL Hgb (12.0-16.0) g/dl Hct (37.0-47.0) % MCV 86.5 (80.0-98.0) fL MCH 28.7 28.4 (27.0-33.0) pg MCHC 33.2 32.9 (31.0-35.0) g/dl RDW 12.5 (11.0-16.0) % Plt Count (160-400) X10*3/uL MPV (9.4-12.3) fL Immature Gran % (Auto) (0.0-0.4) % Neut % (Auto) (45-73) % Lymph % (Auto) (20-40) % [place] % (Auto) (2-11) % Eos % (Auto) (0-4) % Baso % (Auto) (0-2) % Lymph # (Auto) (1.2-4.9) X10*3/uL [place] # (Auto) (0.1-1.2) X10*3/uL Eos # (Auto) (0.0-0.4) X10*3/uL Baso # (Auto) (0.0-0.2) X10*3/uL Abs Immat Gran (auto) (0.00-0.03) X10*3/uL Absolute Neuts (auto) (2.0-8.3) x10*3/uL Absolute Nucleated RBC (0.0-0.012) X10*3/uL Nucleated RBC % (auto) (0.0-0.2) /100WBC PT (11.1-13.3) SEC INR (0.9-1.1) APTT (26.0-36.8) SEC Sodium (135-145) mmol/L Potassium (3.3-5.1) mmol/L Chloride (96-108) mmol/L Carbon Dioxide (22-29) mmol/L Anion Gap (12-20) BUN (9-16) mg/dL Creatinine (0.5-1.4) mg/dL Estim Creat Clear Calc Estimated GFR Random Glucose (60-115) mg/dL Calcium (8.4-10.2) mg/dL Magnesium (1.6-2.6) mg/dL Total Bilirubin (0.0-1.0) mg/dL AST (5-31) U/L ALT (0-31) U/L Alkaline Phosphatase (39-117) U/L Troponin I High Sens (<3.5-17.0) ng/L Total Protein (6.5-8.0) g/dL Albumin (3.5-5.0) g/dL Beta HCG, Quant mIU/mL Urine Color Urine Appearance Urine pH (5.0-9.0) Ur Specific [facility] (1.005-1.025) Urine Protein (Neg-Trace) mg/dL Urine Glucose (UA) (Negative) mg/dL Urine Ketones (Negative) mg/dL Urine Blood (Negative) Urine Nitrite (Negative) Ur Leukocyte Esterase (Negative) Urine RBC (0-2) /HPF Urine WBC (0-5) /HPF Ur Squamous Epith Cells (0-2) /HPF Urine Bacteria (None Seen) Hyaline Casts (0-2) /LPF 03/04/24 03/04/24 03/04/24 Range/Units 16:13 16:13 16:13 WBC (4.8-10.8) X10*3/uL RBC (4.20-5.50) X10*6/uL Hgb (12.0-16.0) g/dl Hct (37.0-47.0) % MCV (80.0-98.0) fL MCH (27.0-33.0) pg MCHC (31.0-35.0) g/dl RDW 12.5 (11.0-16.0) % Plt Count 341 347 (160-400) X10*3/uL MPV 9.2 L 9.2 L (9.4-12.3) fL Immature Gran % (Auto) 0.4 (0.0-0.4) % Neut % (Auto) (45-73) % Lymph % (Auto) (20-40) % [place] % (Auto) (2-11) % Eos % (Auto) (0-4) % Baso % (Auto) (0-2) % Lymph # (Auto) (1.2-4.9) X10*3/uL [place] # (Auto) (0.1-1.2) X10*3/uL Eos # (Auto) (0.0-0.4) X10*3/uL Baso # (Auto) (0.0-0.2) X10*3/uL Abs Immat Gran (auto) (0.00-0.03) X10*3/uL Absolute Neuts (auto) (2.0-8.3) x10*3/uL Absolute Nucleated RBC (0.0-0.012) X10*3/uL Nucleated RBC % (auto) (0.0-0.2) /100WBC PT (11.1-13.3) SEC INR (0.9-1.1) APTT (26.0-36.8) SEC Sodium (135-145) mmol/L Potassium (3.3-5.1) mmol/L Chloride (96-108) mmol/L Carbon Dioxide (22-29) mmol/L Anion Gap (12-20) BUN (9-16) mg/dL Creatinine (0.5-1.4) mg/dL Estim Creat Clear Calc Estimated GFR Random Glucose (60-115) mg/dL Calcium (8.4-10.2) mg/dL Magnesium (1.6-2.6) mg/dL Total Bilirubin (0.0-1.0) mg/dL AST (5-31) U/L ALT (0-31) U/L Alkaline Phosphatase (39-117) U/L Troponin I High Sens (<3.5-17.0) ng/L Total Protein (6.5-8.0) g/dL Albumin (3.5-5.0) g/dL Beta HCG, Quant mIU/mL Urine Color Urine Appearance Urine pH (5.0-9.0) Ur Specific [facility] (1.005-1.025) Urine Protein (Neg-Trace) mg/dL Urine Glucose (UA) (Negative) mg/dL Urine Ketones (Negative) mg/dL Urine Blood (Negative) Urine Nitrite (Negative) Ur Leukocyte Esterase (Negative) Urine RBC (0-2) /HPF Urine WBC (0-5) /HPF Ur Squamous Epith Cells (0-2) /HPF Urine Bacteria (None Seen) Hyaline Casts (0-2) /LPF 03/04/24 03/04/24 03/04/24 Range/Units 16:13 16:13 16:13 WBC (4.8-10.8) X10*3/uL RBC (4.20-5.50) X10*6/uL Hgb (12.0-16.0) g/dl Hct (37.0-47.0) % MCV (80.0-98.0) fL MCH (27.0-33.0) pg MCHC (31.0-35.0) g/dl RDW (11.0-16.0) % Plt Count (160-400) X10*3/uL MPV (9.4-12.3) fL Immature Gran % (Auto) 0.3 (0.0-0.4) % Neut % (Auto) 53.3 53.0 (45-73) % Lymph % (Auto) 35.8 36.6 (20-40) % [place] % (Auto) 7.7 (2-11) % Eos % (Auto) (0-4) % Baso % (Auto) (0-2) % Lymph # (Auto) (1.2-4.9) X10*3/uL [place] # (Auto) (0.1-1.2) X10*3/uL Eos # (Auto) (0.0-0.4) X10*3/uL Baso # (Auto) (0.0-0.2) X10*3/uL Abs Immat Gran (auto) (0.00-0.03) X10*3/uL Absolute Neuts (auto) (2.0-8.3) x10*3/uL Absolute Nucleated RBC (0.0-0.012) X10*3/uL Nucleated RBC % (auto) (0.0-0.2) /100WBC PT (11.1-13.3) SEC INR (0.9-1.1) APTT (26.0-36.8) SEC Sodium (135-145) mmol/L Potassium (3.3-5.1) mmol/L Chloride (96-108) mmol/L Carbon Dioxide (22-29) mmol/L Anion Gap (12-20) BUN (9-16) mg/dL Creatinine (0.5-1.4) mg/dL Estim Creat Clear Calc Estimated GFR Random Glucose (60-115) mg/dL Calcium (8.4-10.2) mg/dL Magnesium (1.6-2.6) mg/dL Total Bilirubin (0.0-1.0) mg/dL AST (5-31) U/L ALT (0-31) U/L Alkaline Phosphatase (39-117) U/L Troponin I High Sens (<3.5-17.0) ng/L Total Protein (6.5-8.0) g/dL Albumin (3.5-5.0) g/dL Beta HCG, Quant mIU/mL Urine Color Urine Appearance Urine pH (5.0-9.0) Ur Specific [facility] (1.005-1.025) Urine Protein (Neg-Trace) mg/dL Urine Glucose (UA) (Negative) mg/dL Urine Ketones (Negative) mg/dL Urine Blood (Negative) Urine Nitrite (Negative) Ur Leukocyte Esterase (Negative) Urine RBC (0-2) /HPF Urine WBC (0-5) /HPF Ur Squamous Epith Cells (0-2) /HPF Urine Bacteria (None Seen) Hyaline Casts (0-2) /LPF 03/04/24 03/04/24 03/04/24 Range/Units 16:13 16:13 16:13 WBC (4.8-10.8) X10*3/uL RBC (4.20-5.50) X10*6/uL Hgb (12.0-16.0) g/dl Hct (37.0-47.0) % MCV (80.0-98.0) fL MCH (27.0-33.0) pg MCHC (31.0-35.0) g/dl RDW (11.0-16.0) % Plt Count (160-400) X10*3/uL MPV (9.4-12.3) fL Immature Gran % (Auto) (0.0-0.4) % Neut % (Auto) (45-73) % Lymph % (Auto) (20-40) % [place] % (Auto) 7.4 (2-11) % Eos % (Auto) 2.2 2.1 (0-4) % Baso % (Auto) 0.6 0.6 (0-2) % Lymph # (Auto) 3.7 (1.2-4.9) X10*3/uL [place] # (Auto) (0.1-1.2) X10*3/uL Eos # (Auto) (0.0-0.4) X10*3/uL Baso # (Auto) (0.0-0.2) X10*3/uL Abs Immat Gran (auto) (0.00-0.03) X10*3/uL Absolute Neuts (auto) (2.0-8.3) x10*3/uL Absolute Nucleated RBC (0.0-0.012) X10*3/uL Nucleated RBC % (auto) (0.0-0.2) /100WBC PT (11.1-13.3) SEC INR (0.9-1.1) APTT (26.0-36.8) SEC Sodium (135-145) mmol/L Potassium (3.3-5.1) mmol/L Chloride (96-108) mmol/L Carbon Dioxide (22-29) mmol/L Anion Gap (12-20) BUN (9-16) mg/dL Creatinine (0.5-1.4) mg/dL Estim Creat Clear Calc Estimated GFR Random Glucose (60-115) mg/dL Calcium (8.4-10.2) mg/dL Magnesium (1.6-2.6) mg/dL Total Bilirubin (0.0-1.0) mg/dL AST (5-31) U/L ALT (0-31) U/L Alkaline Phosphatase (39-117) U/L Troponin I High Sens (<3.5-17.0) ng/L Total Protein (6.5-8.0) g/dL Albumin (3.5-5.0) g/dL Beta HCG, Quant mIU/mL Urine Color Urine Appearance Urine pH (5.0-9.0) Ur Specific [facility] (1.005-1.025) Urine Protein (Neg-Trace) mg/dL Urine Glucose (UA) (Negative) mg/dL Urine Ketones (Negative) mg/dL Urine Blood (Negative) Urine Nitrite (Negative) Ur Leukocyte Esterase (Negative) Urine RBC (0-2) /HPF Urine WBC (0-5) /HPF Ur Squamous Epith Cells (0-2) /HPF Urine Bacteria (None Seen) Hyaline Casts (0-2) /LPF 03/04/24 03/04/24 03/04/24 Range/Units 16:13 16:13 16:13 WBC (4.8-10.8) X10*3/uL RBC (4.20-5.50) X10*6/uL Hgb (12.0-16.0) g/dl Hct (37.0-47.0) % MCV (80.0-98.0) fL MCH (27.0-33.0) pg MCHC (31.0-35.0) g/dl RDW (11.0-16.0) % Plt Count (160-400) X10*3/uL MPV (9.4-12.3) fL Immature Gran % (Auto) (0.0-0.4) % Neut % (Auto) (45-73) % Lymph % (Auto) (20-40) % [place] % (Auto) (2-11) % Eos % (Auto) (0-4) % Baso % (Auto) (0-2) % Lymph # (Auto) 3.9 (1.2-4.9) X10*3/uL [place] # (Auto) 0.8 0.8 (0.1-1.2) X10*3/uL Eos # (Auto) 0.2 0.2 (0.0-0.4) X10*3/uL Baso # (Auto) 0.1 (0.0-0.2) X10*3/uL Abs Immat Gran (auto) (0.00-0.03) X10*3/uL Absolute Neuts (auto) (2.0-8.3) x10*3/uL Absolute Nucleated RBC (0.0-0.012) X10*3/uL Nucleated RBC % (auto) (0.0-0.2) /100WBC PT (11.1-13.3) SEC INR (0.9-1.1) APTT (26.0-36.8) SEC Sodium (135-145) mmol/L Potassium (3.3-5.1) mmol/L Chloride (96-108) mmol/L Carbon Dioxide (22-29) mmol/L Anion Gap (12-20) BUN (9-16) mg/dL Creatinine (0.5-1.4) mg/dL Estim Creat Clear Calc Estimated GFR Random Glucose (60-115) mg/dL Calcium (8.4-10.2) mg/dL Magnesium (1.6-2.6) mg/dL Total Bilirubin (0.0-1.0) mg/dL AST (5-31) U/L ALT (0-31) U/L Alkaline Phosphatase (39-117) U/L Troponin I High Sens (<3.5-17.0) ng/L Total Protein (6.5-8.0) g/dL Albumin (3.5-5.0) g/dL Beta HCG, Quant mIU/mL Urine Color Urine Appearance Urine pH (5.0-9.0) Ur Specific [facility] (1.005-1.025) Urine Protein (Neg-Trace) mg/dL Urine Glucose (UA) (Negative) mg/dL Urine Ketones (Negative) mg/dL Urine Blood (Negative) Urine Nitrite (Negative) Ur Leukocyte Esterase (Negative) Urine RBC (0-2) /HPF Urine WBC (0-5) /HPF Ur Squamous Epith Cells (0-2) /HPF Urine Bacteria (None Seen) Hyaline Casts (0-2) /LPF 03/04/24 03/04/24 03/04/24 Range/Units 16:13 16:13 16:13 WBC (4.8-10.8) X10*3/uL RBC (4.20-5.50) X10*6/uL Hgb (12.0-16.0) g/dl Hct (37.0-47.0) % MCV (80.0-98.0) fL MCH (27.0-33.0) pg MCHC (31.0-35.0) g/dl RDW (11.0-16.0) % Plt Count (160-400) X10*3/uL MPV (9.4-12.3) fL Immature Gran % (Auto) (0.0-0.4) % Neut % (Auto) (45-73) % Lymph % (Auto) (20-40) % [place] % (Auto) (2-11) % Eos % (Auto) (0-4) % Baso % (Auto) (0-2) % Lymph # (Auto) (1.2-4.9) X10*3/uL [place] # (Auto) (0.1-1.2) X10*3/uL Eos # (Auto) (0.0-0.4) X10*3/uL Baso # (Auto) 0.1 (0.0-0.2) X10*3/uL Abs Immat Gran (auto) 0.04 H 0.03 (0.00-0.03) X10*3/uL Absolute Neuts (auto) 5.4 5.6 (2.0-8.3) x10*3/uL Absolute Nucleated RBC 0.000 (0.0-0.012) X10*3/uL Nucleated RBC % (auto) (0.0-0.2) /100WBC PT (11.1-13.3) SEC INR (0.9-1.1) APTT (26.0-36.8) SEC Sodium (135-145) mmol/L Potassium (3.3-5.1) mmol/L Chloride (96-108) mmol/L Carbon Dioxide (22-29) mmol/L Anion Gap (12-20) BUN (9-16) mg/dL Creatinine (0.5-1.4) mg/dL Estim Creat Clear Calc Estimated GFR Random Glucose (60-115) mg/dL Calcium (8.4-10.2) mg/dL Magnesium (1.6-2.6) mg/dL Total Bilirubin (0.0-1.0) mg/dL AST (5-31) U/L ALT (0-31) U/L Alkaline Phosphatase (39-117) U/L Troponin I High Sens (<3.5-17.0) ng/L Total Protein (6.5-8.0) g/dL Albumin (3.5-5.0) g/dL Beta HCG, Quant mIU/mL Urine Color Urine Appearance Urine pH (5.0-9.0) Ur Specific [facility] (1.005-1.025) Urine Protein (Neg-Trace) mg/dL Urine Glucose (UA) (Negative) mg/dL Urine Ketones (Negative) mg/dL Urine Blood (Negative) Urine Nitrite (Negative) Ur Leukocyte Esterase (Negative) Urine RBC (0-2) /HPF Urine WBC (0-5) /HPF Ur Squamous Epith Cells (0-2) /HPF Urine Bacteria (None Seen) Hyaline Casts (0-2) /LPF 03/04/24 03/04/24 03/04/24 Range/Units 16:13 16:13 16:13 WBC (4.8-10.8) X10*3/uL RBC (4.20-5.50) X10*6/uL Hgb (12.0-16.0) g/dl Hct (37.0-47.0) % MCV (80.0-98.0) fL MCH (27.0-33.0) pg MCHC (31.0-35.0) g/dl RDW (11.0-16.0) % Plt Count (160-400) X10*3/uL MPV (9.4-12.3) fL Immature Gran % (Auto) (0.0-0.4) % Neut % (Auto) (45-73) % Lymph % (Auto) (20-40) % [place] % (Auto) (2-11) % Eos % (Auto) (0-4) % Baso % (Auto) (0-2) % Lymph # (Auto) (1.2-4.9) X10*3/uL [place] # (Auto) (0.1-1.2) X10*3/uL Eos # (Auto) (0.0-0.4) X10*3/uL Baso # (Auto) (0.0-0.2) X10*3/uL Abs Immat Gran (auto) (0.00-0.03) X10*3/uL Absolute Neuts (auto) (2.0-8.3) x10*3/uL Absolute Nucleated RBC 0.000 (0.0-0.012) X10*3/uL Nucleated RBC % (auto) 0.0 0.0 (0.0-0.2) /100WBC PT 10.9 L 10.8 L (11.1-13.3) SEC INR 0.9 (0.9-1.1) APTT (26.0-36.8) SEC Sodium (135-145) mmol/L Potassium (3.3-5.1) mmol/L Chloride (96-108) mmol/L Carbon Dioxide (22-29) mmol/L Anion Gap (12-20) BUN (9-16) mg/dL Creatinine (0.5-1.4) mg/dL Estim Creat Clear Calc Estimated GFR Random Glucose (60-115) mg/dL Calcium (8.4-10.2) mg/dL Magnesium (1.6-2.6) mg/dL Total Bilirubin (0.0-1.0) mg/dL AST (5-31) U/L ALT (0-31) U/L Alkaline Phosphatase (39-117) U/L Troponin I High Sens (<3.5-17.0) ng/L Total Protein (6.5-8.0) g/dL Albumin (3.5-5.0) g/dL Beta HCG, Quant mIU/mL Urine Color Urine Appearance Urine pH (5.0-9.0) Ur Specific [facility] (1.005-1.025) Urine Protein (Neg-Trace) mg/dL Urine Glucose (UA) (Negative) mg/dL Urine Ketones (Negative) mg/dL Urine Blood (Negative) Urine Nitrite (Negative) Ur Leukocyte Esterase (Negative) Urine RBC (0-2) /HPF Urine WBC (0-5) /HPF Ur Squamous Epith Cells (0-2) /HPF Urine Bacteria (None Seen) Hyaline Casts (0-2) /LPF 03/04/24 03/04/24 03/04/24 Range/Units 16:13 16:13 17:18 WBC (4.8-10.8) X10*3/uL RBC (4.20-5.50) X10*6/uL Hgb (12.0-16.0) g/dl Hct (37.0-47.0) % MCV (80.0-98.0) fL MCH (27.0-33.0) pg MCHC (31.0-35.0) g/dl RDW (11.0-16.0) % Plt Count (160-400) X10*3/uL MPV (9.4-12.3) fL Immature Gran % (Auto) (0.0-0.4) % Neut % (Auto) (45-73) % Lymph % (Auto) (20-40) % [place] % (Auto) (2-11) % Eos % (Auto) (0-4) % Baso % (Auto) (0-2) % Lymph # (Auto) (1.2-4.9) X10*3/uL [place] # (Auto) (0.1-1.2) X10*3/uL Eos # (Auto) (0.0-0.4) X10*3/uL Baso # (Auto) (0.0-0.2) X10*3/uL Abs Immat Gran (auto) (0.00-0.03) X10*3/uL Absolute Neuts (auto) (2.0-8.3) x10*3/uL Absolute Nucleated RBC (0.0-0.012) X10*3/uL Nucleated RBC % (auto) (0.0-0.2) /100WBC PT (11.1-13.3) SEC INR 0.9 (0.9-1.1) APTT 35.0 34.9 (26.0-36.8) SEC Sodium (135-145) mmol/L Potassium (3.3-5.1) mmol/L Chloride (96-108) mmol/L Carbon Dioxide (22-29) mmol/L Anion Gap (12-20) BUN (9-16) mg/dL Creatinine (0.5-1.4) mg/dL Estim Creat Clear Calc Estimated GFR Random Glucose (60-115) mg/dL Calcium (8.4-10.2) mg/dL Magnesium (1.6-2.6) mg/dL Total Bilirubin (0.0-1.0) mg/dL AST (5-31) U/L ALT (0-31) U/L Alkaline Phosphatase (39-117) U/L Troponin I High Sens (<3.5-17.0) ng/L Total Protein (6.5-8.0) g/dL Albumin (3.5-5.0) g/dL Beta HCG, Quant mIU/mL Urine Color Yellow Urine Appearance Clear Urine pH 5.5 (5.0-9.0) Ur Specific [facility] 1.025 (1.005-1.025) Urine Protein Negative (Neg-Trace) mg/dL Urine Glucose (UA) >=1000 H (Negative) mg/dL Urine Ketones Trace (Negative) mg/dL Urine Blood Small (1+) H (Negative) Urine Nitrite Negative (Negative) Ur Leukocyte Esterase Negative (Negative) Urine RBC 0-2 (0-2) /HPF Urine WBC 0-5 (0-5) /HPF Ur Squamous Epith Cells 3-5 (0-2) /HPF Urine Bacteria 1+ (None Seen) Hyaline Casts 0-2 (0-2) /LPF Discharge Plan Discharge Clinical Impression: Benign paroxysmal positional vertigo, Dizziness Patient Disposition: Home, Self-Care Instructions: Benign Paroxysmal Positional Vertigo (ED), Dizziness (ED) Additional Instructions: You were seen today in the emergency room for dizziness and numbness. You had labs and a CT scan withdrawal please call follow up with Neurology Prescriptions: New meclizine 12.5 mg tablet 12.5 mg PO TID PRN (Reason: dizziness) Qty: 30 0RF No Action oxycodone 5 mg tablet 5 mg PO Q8H PRN (Reason: pain) 3 Days Qty: 6 0RF Rx Instructions: Partial Fill upon patient request. Rib contusion cyclobenzaprine 10 mg tablet 10 mg PO TID PRN (Reason: muscle spasm) Qty: 15 0RF oxycodone 5 mg tablet 5 mg PO Q8H PRN (Reason: pain) Qty: 10 0RF Rx Instructions: Partial Fill upon patient request. prednisone 20 mg tablet 60 mg PO DAILY Qty: 15 0RF ibuprofen 800 mg tablet 800 mg PO Q8H PRN (Reason: pain) Qty: 30 0RF lidocaine [Lidoderm] 5 % adhesive patch,medicated 1 patch topical DAILY Qty: 15 0RF Rx Instructions: leave on most painful area for up to 12 hrs Referrals: Emigdio Humphrey MD [Physician] - (Please call follow-up for dizziness and numbness. He did undergo CT and labs were drawn unremarkable You have any further concerns please return to emergency department.) Interventions: ED Discharge Assessment Last Done: 03/04/24 19:07 Discharge Date/Time: 03/04/24 19:09 Print Language: Filipino
[2024-03-04 15:23] LABS: Alanine Aminotransferase 28 U/L (0-31); Alkaline Phosphatase 100 U/L (39-117); Anion Gap 15 (12-20); Aspartate Amino Transferase 17 U/L (5-31); Bilirubin Total 0.3 mg/dL (0.0-1.0); Blood Urea Nitrogen 14 mg/dL (9-16); Calcium 9.3 mg/dL (8.4-10.2); Carbon Dioxide 21 mmol/L (22-29); Chloride 105 mmol/L (96-108); Estimated Glomerular Filt Rate > 60; Glucose Random 242 mg/dL (60-115); Magnesium 1.8 mg/dL (1.6-2.6); Potassium 3.8 mmol/L (3.3-5.1); Sodium 137 mmol/L (135-145); Total Protein 7.6 g/dL (6.5-8.0)
[2024-03-04 15:30] LABS: Troponin-I High Sensitivity < 2.7 ng/L (<3.5-17.0)
[2024-03-04 15:31] LABS: HCG Quantitative < 2 mIU/mL
[2024-03-04 16:17] LABS: MANUAL DIFF FLAG NO
[2024-03-04 16:20] LABS: Basophils Absolute Auto 0.1 X10*3/uL (0.0-0.2); Basophils Percent Auto 0.6 % (0-2); Eosinophils Absolute Auto 0.2 X10*3/uL (0.0-0.4); Eosinophils Percent Auto 2.2 % (0-4); Hematocrit 41.9 % (37.0-47.0); Hemoglobin 13.9 g/dl (12.0-16.0); Imm Gran Abs Auto 0.04 X10*3/uL (0.00-0.03); Imm Gran Pct Auto 0.4 % (0.0-0.4); Lymphocytes Absolute Auto 3.7 X10*3/uL (1.2-4.9); Lymphocytes Percent Auto 35.8 % (20-40); Mean Corpuscular HGB Conc 33.2 g/dl (31.0-35.0); Mean Corpuscular Hemoglobin 28.7 pg (27.0-33.0); Mean Corpuscular Volume 86.4 fL (80.0-98.0); Mean Platelet Volume 9.2 fL (9.4-12.3); Monocytes Absolute Auto 0.8 X10*3/uL (0.1-1.2); Monocytes Percent Auto 7.7 % (2-11); Neutrophils Absolute Auto 5.4 x10*3/uL (2.0-8.3); Neutrophils Percent Auto 53.3 % (45-73); Platelet Count 341 X10*3/uL (160-400); Red Blood Count 4.85 X10*6/uL (4.20-5.50); Red Cell Distribution Width 12.5 % (11.0-16.0); White Blood Count 10.2 X10*3/uL (4.8-10.8)
[2024-03-04 16:21] LABS: Basophils Absolute Auto 0.1 X10*3/uL (0.0-0.2); Basophils Percent Auto 0.6 % (0-2); Eosinophils Absolute Auto 0.2 X10*3/uL (0.0-0.4); Eosinophils Percent Auto 2.1 % (0-4); Hematocrit 42.3 % (37.0-47.0); Hemoglobin 13.9 g/dl (12.0-16.0); Imm Gran Abs Auto 0.03 X10*3/uL (0.00-0.03); Imm Gran Pct Auto 0.3 % (0.0-0.4); Lymphocytes Absolute Auto 3.9 X10*3/uL (1.2-4.9); Lymphocytes Percent Auto 36.6 % (20-40); Mean Corpuscular HGB Conc 32.9 g/dl (31.0-35.0); Mean Corpuscular Hemoglobin 28.4 pg (27.0-33.0); Mean Corpuscular Volume 86.5 fL (80.0-98.0); Mean Platelet Volume 9.2 fL (9.4-12.3); Monocytes Absolute Auto 0.8 X10*3/uL (0.1-1.2); Monocytes Percent Auto 7.4 % (2-11); Neutrophils Absolute Auto 5.6 x10*3/uL (2.0-8.3); Platelet Count 347 X10*3/uL (160-400); Red Blood Count 4.89 X10*6/uL (4.20-5.50); Red Cell Distribution Width 12.5 % (11.0-16.0); White Blood Count 10.6 X10*3/uL (4.8-10.8)
[2024-03-04 16:29] LABS: INTERNATIONAL NORM RATIO 0.9 (0.9-1.1); Prothrombin Time 10.8 SEC (11.1-13.3); Prothrombin Time 10.9 SEC (11.1-13.3)
[2024-03-04 16:32] LABS: Partial Thromboplastin Time 34.9 SEC (26.0-36.8)
[2024-03-04 17:36] LABS: MANUAL DIFF FLAG NO
[2024-03-04 17:47] LABS: Appearance Urine Clear; Color Urine Yellow; Glucose Urine UA >=1000 mg/dL (Negative); Leukocyte Esterase Urine Negative (Negative); Nitrite Urine Negative (Negative); PH 5.5 (5.0-9.0); Specific Gravity - Urine 1.025 (1.005-1.025); UMIC TRIGGER UACC YES; Urine Blood Small (1+) (Negative); Urine Ketones Trace mg/dL (Negative); Urine Protein Negative (Neg-Trace)
[2024-03-04 18:28] LABS: Bacteria Urine 1+ (None Seen); Hyaline Casts Urine 0-2 /LPF (0-2); RBC Urine 0-2 /HPF (0-2); WBC Urine 0-5 /HPF (0-5)
[2024-03-04 19:07] VITALS: BP 125/71; PULSE 97; RESP 18; TEMP 37; O2SAT 99
== END 2024-03-04 19:09 | disposition home or self-care (01) ==
PROVIDERS: Physician Assistant; Emergency Provider Student in an Organized Health Care Education/Training Program; PCP Family Medicine
DX: R42 Dizziness and giddiness (principal); R20.0 Anesthesia of skin; R10.2 Pelvic and perineal pain; M54.50 Low back pain, unspecified; I10 Essential (primary) hypertension; Z79.899 Other long term (current) drug therapy
CPT/HCPCS: 36415; 70450; 80053; 81001; 83735; 84484; 84702; 85025; 85610; 85730; 93005; 99283; 99284

== ENCOUNTER → 2024-03-04 14:49 | Outpatient (BNV) | payer OTHER, SELFPAY | PROVIDERS: Emergency Provider Student in an Organized Health Care Education/Training Program; PCP Family Medicine; Visit Provider Internal Medicine Cardiovascular Disease | DX: R42 Dizziness and giddiness (principal) | CPT/HCPCS: 93010 ==

== ENCOUNTER 2024-04-01 11:09 | Outpatient (REF) | payer OTHER, SELFPAY ==
[2024-04-01 13:34] LABS: Hematocrit 40.6 % (37.0-47.0); Hemoglobin 13.2 g/dl (12.0-16.0); Mean Corpuscular HGB Conc 32.5 g/dl (31.0-35.0); Mean Corpuscular Hemoglobin 28.4 pg (27.0-33.0); Mean Corpuscular Volume 87.5 fL (80.0-98.0); Mean Platelet Volume 9.6 fL (9.4-12.3); Platelet Count 309 X10*3/uL (160-400); Red Blood Count 4.64 X10*6/uL (4.20-5.50); Red Cell Distribution Width 12.7 % (11.0-16.0)
[2024-04-01 13:44] LABS: Estimated Average Glucose 186 mg/dL; Hemoglobin A1c % 8.1 % (<6.0)
[2024-04-01 13:49] LABS: Alanine Aminotransferase 26 U/L (0-31); Albumin Level 3.9 g/dL (3.5-5.0); Alkaline Phosphatase 91 U/L (39-117); Anion Gap 9 (12-20); Aspartate Amino Transferase 17 U/L (5-31); Bilirubin Direct 0.1 mg/dL (0.0-0.5); Bilirubin Total 0.3 mg/dL (0.0-1.0); Blood Urea Nitrogen 11 mg/dL (9-16); Calcium 9.2 mg/dL (8.4-10.2); Carbon Dioxide 27 mmol/L (22-29); Chloride 107 mmol/L (96-108); Cholesterol 153 mg/dL (<200); Estimated Glomerular Filt Rate > 60; Glucose Random 212 mg/dL (60-115); HDL Cholesterol 39 mg/dL (>40); LDL Cholesterol Calculated 101 mg/dL (<100); Potassium 4.5 mmol/L (3.3-5.1); Sodium 138 mmol/L (135-145); Total Protein 7.1 g/dL (6.5-8.0); Triglycerides 67 mg/dL (<150)
[2024-04-01 13:58] LABS: Hepatitis A Antibody IgG Nonreactive (Nonreactive); ~Hepatitis A Antibody IgG 0.68 S/CO (0.00-0.99)
[2024-04-01 14:02] LABS: HBS Num1 1.46 mIU/mL (0-7.99); HBsAGNum1 0.24 S/CO (0.00-0.99); HIV AB/AG Nonreactive (Nonreactive); HIV Num 1 0.05 S/CO (0.00-0.99); Hepatitis B Surface Antigen Negative (Negative); ~HepC Num1 0.45 S/CO (0.00-0.79); ~Hepatitis B Surface Antibody NONREACTIVE (Nonreactive); ~Hepatitis C Antibody Nonreactive (Nonreactive)
[2024-04-01 14:05] LABS: Vitamin B12 373 pg/mL (200-900)
[2024-04-01 14:08] LABS: Free T4 (Free Thyroxine) 0.78 ng/dL (0.71-1.85); Thyroid Stimulating Hormone 1.31 uIU/mL (0.32-4.0); Vitamin D 25-OH Total 21.4 ng/mL (>30)
[2024-04-01 14:14] LABS: Creatinine Urine 152.79 mg/dL; Microalbum/Creatinine Ratio Ur 5.8 ug/mg cr (<30)
[2024-04-05 14:53] LABS: RPR Rapid Plasma Reagin NON-REACTIVE (NON-REACTIVE)
== END 2024-04-01 11:10 | disposition home or self-care (01) ==
LOC: HO.HHCL 11:09
PROVIDERS: Visit Provider Family Medicine
DX: Z00.00 Encounter for general adult medical examination without abnormal findings (principal); E11.9 Type 2 diabetes mellitus without complications; F43.10 Post-traumatic stress disorder, unspecified; G43.909 Migraine, unspecified, not intractable, without status migrainosus; I10 Essential (primary) hypertension; R55 Syncope and collapse; R06.83 Snoring
CPT/HCPCS: 36415; 80048; 80061; 80076; 82043; 82306; 82570; 82607; 83036; 84439; 84443; 85027; 86592; 86706; 86708; 86803; 87340; 87389

== ENCOUNTER 2024-08-06 17:53 | Outpatient (REF) | payer OTHER, SELFPAY ==
[2024-08-07 11:56] LABS: Bacterial Vaginosis PCR NEGATIVE (Negative); Candida Group PCR DETECTED (Not Detect); Candida glab krusei PCR NOT DETECTED (Not Detect); Trichomonas vaginalis PCR NOT DETECTED (Not Detect)
== END 2024-08-06 17:54 | disposition home or self-care (01) ==
LOC: HO.HHCLNP 17:53
PROVIDERS: Visit Provider Nurse Practitioner
DX: N94.9 Unspecified condition associated with female genital organs and menstrual cycle (principal)
CPT/HCPCS: 0352U